=== PATIENT | female | born 1980 | race Caucasian/White ===

== ENCOUNTER 2016-06-23 21:59 | Emergency (ER) | payer OTHER ==
[~2016-06-23] VITALS: Ht 165.1 cm; Wt 113.6 kg
[2016-06-23] MEDS ORDERED: DOXYCYCLINE HY100 MG PO (23:43)
[2016-06-23] MEDS ORDERED: PERCOCET 5/31 TABLET PO (23:44)
[2016-06-24 00:10] VITALS: BP 131/82
== END 2016-06-24 00:11 | disposition home or self-care (01) ==
LOC: EME 21:59
DX: J18.9 Pneumonia, unspecified organism (principal); S29.011A Strain of muscle and tendon of front wall of thorax, initial encounter
CPT/HCPCS: 71020; 99281; 99283

== ENCOUNTER 2016-09-05 23:56 | Emergency (ER) | payer OTHER ==
[~2016-09-05] VITALS: Ht 154.9 cm; Wt 110.0 kg
[~2016-09-05 23:56] MED LIST: DOXYCYCLINE HY100 MG PO; PERCOCET 5/31 TABLET PO
[2016-09-06] MEDS ORDERED: INDOCIN50 MG PO (01:08)
[2016-09-06 01:21] VITALS: BP 140/90
== END 2016-09-06 01:23 | disposition home or self-care (01) ==
LOC: EME 23:56
DX: S70.01XA Contusion of right hip, initial encounter (principal); S76.011A Strain of muscle, fascia and tendon of right hip, initial encounter; W18.30XA Fall on same level, unspecified, initial encounter
CPT/HCPCS: 73502; 99281; 99284; J1885

== ENCOUNTER 2016-10-11 15:20 | Emergency (ER) | payer SELFPAY ==
[~2016-10-11] VITALS: Ht 165.1 cm; Wt 107.8 kg
[~2016-10-11 15:20] MED LIST changes: +INDOCIN50 MG PO
[2016-10-11] MEDS ORDERED: BUSPAR30 MG PO (17:03)
[2016-10-11] MEDS ORDERED: LAMICTAL150 M1 PO (17:03)
[2016-10-11] MEDS ORDERED: EFFEXOR75 MG PO (17:03)
[2016-10-11 17:09] VITALS: BP 167/106
== END 2016-10-11 17:10 | disposition home or self-care (01) ==
LOC: EME 15:20
DX: Z76.0 Encounter for issue of repeat prescription (principal); F31.9 Bipolar disorder, unspecified; F32.9 Major depressive disorder, single episode, unspecified; F41.9 Anxiety disorder, unspecified; I10 Essential (primary) hypertension
CPT/HCPCS: 99281; 99283

== ENCOUNTER 2016-11-15 22:43 | Emergency (ER) | payer OTHER, BC ==
[~2016-11-15] VITALS: Ht 165.1 cm; Wt 111.0 kg
[~2016-11-15 22:43] MED LIST changes: +BUSPAR30 MG PO; +EFFEXOR75 MG PO; +LAMICTAL150 M1 PO
[2016-11-15] MEDS ORDERED: LAMOTRIGINE150 MG PO (23:43)
[2016-11-15] MEDS ORDERED: BUSPAR15 MG PO (23:43)
[2016-11-15] MEDS ORDERED: VENLAFAXINE HCL75 M3 PO (23:43)
[2016-11-16] MEDS ORDERED: NORCO 5/3251 TABLET PO (00:48)
[2016-11-16 01:07] VITALS: BP 126/99
== END 2016-11-16 01:08 | disposition home or self-care (01) ==
LOC: EME 22:43
DX: S50.11XA Contusion of right forearm, initial encounter (principal); W11.XXXA Fall on and from ladder, initial encounter; Y99.0 Civilian activity done for income or pay
CPT/HCPCS: 73090; 99281; 99284